=== PATIENT | female | born 1945 | race African-American/Black ===

== ENCOUNTER → 2018-10-22 | Outpatient (CLI) | payer BC ==
[2014-10-20 11:00] VITALS: BP 155/69
[~2018-10-22] MED LIST: CHOL500045 PO; CIPR500T94 PO; ERGO500027 PO; LISI1TAB3 PO; LORC10TA PO; METO-247 PO; METO100T7 PO; METR-84 PO; SIMV10TA3 PO; WARF-31 PO; WARF7.5T48 PO
--- NOTE | 2018-10-22 14:51 | KCIC ---
EXAM: MRI RIGHT SHOULDER WITHOUT IV CONTRAST DATE: 10/22/2018 2:00 PM COMPARISON: None INDICATION: Right shoulder pain, decreased range of motion. Fall/injury 09/18/2018 TECHNIQUE: Multiplanar multisequence MR imaging of the right shoulder was performed without IV contrast. FINDINGS: Mild AC joint degenerative changes are seen with small associated osteophytes. Type II acromion. No definite fracture or AVN is identified. Small right lateral humeral joint effusion. There is distention of the subacromial-subdeltoid bursa from full-thickness rotator cuff tear. Humeral head is high riding-acromiohumeral interval measures 6 mm. Full-thickness, full width tear of the supraspinatus tendon and full-thickness, subtotal with tear of the infraspinatus tendon measuring approximately 4.3 cm in AP dimension. There is retraction to the level of the distal acromion/AC joint. Mild increased signal and thickening of the superior portions of the subscapularis tendon, moderate tendinosis. No rotator cuff muscle atrophy. The extra articular long head biceps tendon is seen within the bicipital groove. Moderate increased signal and thickening of the intra-articular long head biceps tendon consistent with moderate tendinosis. Right glenohumeral joint osteophytes arthritis with inferior projecting osteophytes. Subchondral cystic changes are seen within the anterior inferior glenoid. Full-thickness chondral effacement is seen within the anterior portions of the glenoid. Full-thickness cartilage defects are seen within the superior humeral head. IMPRESSION: 1. Full-thickness, full width and full-thickness, subtotal with tears of the supraspinatus and infraspinatus tendons respectively with retraction to the distal acromion-AC joint. 2. Moderate subscapularis tendinosis most prominent superiorly. 3. Moderate intra-articular long head biceps tendinosis. 4. Small right glenohumeral joint effusion with subacromial-subdeltoid bursitis. Electronically signed by: Donald Alvarez MD (10/22/2018 2:48 PM) [id number]
== END | disposition home or self-care (01) ==
LOC: KCIC MRI 13:24
PROVIDERS: ATTEND Orthopaedic Surgery
DX: M13.811 Other specified arthritis, right shoulder (principal); M25.411 Effusion, right shoulder; M75.101 Unspecified rotator cuff tear or rupture of right shoulder, not specified as traumatic; M75.51 Bursitis of right shoulder; M75.21 Bicipital tendinitis, right shoulder; M25.711 Osteophyte, right shoulder
CPT/HCPCS: 73221